=== PATIENT | female | born 1990 | race Two or more races ===

== ENCOUNTER 2016-08-10 22:11 | Emergency (ER) | payer MEDICAID ==
[~2016-08-10] VITALS: Ht 157.5 cm; Wt 43.1 kg
[2016-08-10] MEDS ORDERED: methylPREDNISolone SOD SUCC 125 MG/2 ML VL ONE (22:23)
[2016-08-10] MEDS ORDERED: diphenhdrAMINE HCL 50 MG/1 ML VL ONE (22:23)
[2016-08-10] MEDS ORDERED: SODIUM CHLORIDE 0.9% 1,000 ML IV ONE (22:30)
[2016-08-10] MEDS ORDERED: ONDANSETRON HCL 4 MG/2 ML VIAL ONE (22:32)
[2016-08-10] MEDS ORDERED: methylPREDNISolone SOD SUCC 125 MG/2 ML VL IV ONE (23:00)
[2016-08-10] MEDS ORDERED: ONDANSETRON HCL 4 MG/2 ML VIAL IV ONE (23:00)
[2016-08-10] MEDS ORDERED: diphenhdrAMINE HCL 50 MG/1 ML VL IV ONE (23:00)
[2016-08-11] MEDS ORDERED: ACETAMINOPHEN 325 MG TAB PO ONE (01:15)
[2016-08-11 01:31] LABS: Basophils # (auto) 0 uL; Basophils % (auto) 0.3 % (0.0-2.0); Eosinophils # (auto) 0.2 uL; Eosinophils % (auto) 1.7 % (0.0-7.0); Hematocrit 39.8 % (36.0-46.0); Hemoglobin 13.1 g/dL (12.2-16.2); Lymphocytes # (auto) 5.4 uL; Lymphocytes % (auto) 49.4 % (10.0-50.0); Mean Corpuscular Hemoglobin 30.2 pg (28.0-32.0); Mean Corpuscular Hgb Conc. 32.9 g/dL (32.0-36.0); Mean Corpuscular Volume 91.8 fL (80.0-100.0); Mean Platelet Volume 7.9 fL (7.4-10.4); Monocytes # (auto) 0.8 uL; Monocytes % (auto) 6.9 % (0.0-12.0); Neutrophils # (auto) 4.6 uL; Neutrophils % (auto) 41.7 % (37.0-80.0); Platelet Count (auto) 441 10^3/uL (140-450); Red Cell Distribution Width 16.2 % (11.6-16.0)
[2016-08-11 01:41] LABS: Anion Gap 13 (5-15); Aspartate Aminotransferase 13 U/L (15-37); BUN/Creatinine Ratio 15.9; Blood Urea Nitrogen 11 mg/dL (7-18); Calcium 8.5 mg/dL (8.5-10.1); Carbon Dioxide 19 mmol/L (21-32); Chloride 106 mmol/L (98-107); GFR African American 133 mL/min; GFR Non-African American 110 mL/min; Glucose 118 mg/dL (74-106); Potassium 3.4 mmol/L (3.5-5.1); Sodium 138 mmol/L (136-145)
[2016-08-11 01:46] LABS: Alkaline Phosphatase 54 U/L (45-117); Bilirubin, Total 0.2 mg/dL (0.2-1.0); INR 1.11 (0.9-1.15); Partial Thromboplastin Time 24.6 sec (22.64-33.71); Prothrombin Time 11.4 sec (9.37-12.3); Total Protein 8.2 g/dL (6.4-8.2)
[2016-08-11 02:04] LABS: B-Type Natriuretic Peptide 10.5 pg/mL (0-100); Temperature: 21.6 C (20.0-25.0)
[2016-08-11] MEDS ORDERED: KETOROLAC TROMETH 30 MG/ML 1ML VIAL IV ONE (04:00)
[2016-08-11] MEDS ORDERED: diphenhdrAMINE HCL 25 MG CAP PO ONE (04:45)
[2016-08-11 05:05] VITALS: BP 108/72
== END 2016-08-11 05:10 | disposition home or self-care (01) ==
LOC: ER 22:13
DX: M79.89 Other specified soft tissue disorders (principal); T39.1X5A Adverse effect of 4-Aminophenol derivatives, initial encounter; T40.2X5A Adverse effect of other opioids, initial encounter; R07.89 Other chest pain; J45.909 Unspecified asthma, uncomplicated; F17.210 Nicotine dependence, cigarettes, uncomplicated; Y92.89 Other specified places as the place of occurrence of the external cause
CPT/HCPCS: 36415; 71010; 80053; 83880; 84484; 84702; 85025; 85610; 85730; 96361; 96374; 96375; 99285; J1200; J1885; J2405; J2930; J7030

== ENCOUNTER 2016-11-03 20:54 | Emergency (ER) | payer MEDICAID ==
[~2016-11-03] VITALS: Ht 157.5 cm; Wt 45.1 kg
[2016-11-03 21:09] VITALS: BP 122/90
== END 2016-11-03 22:53 | disposition left against medical advice (07) ==
LOC: ER 20:54
DX: R11.2 Nausea with vomiting, unspecified (principal); Z53.21 Procedure and treatment not carried out due to patient leaving prior to being seen by health care provider

== ENCOUNTER 2017-04-28 12:22 | Emergency (ER) | payer MEDICAID ==
[~2017-04-28] VITALS: Ht 157.5 cm; Wt 43.1 kg
[2017-04-28 13:13] VITALS: BP 133/93
[2017-04-28 15:27] LABS: Basophils # (auto) 0 uL; Basophils % (auto) 0.4 % (0.0-2.0); Eosinophils # (auto) 0.1 uL; Eosinophils % (auto) 1.2 % (0.0-7.0); Hematocrit 38.3 % (36.0-46.0); Lymphocytes # (auto) 2.5 uL; Lymphocytes % (auto) 23.9 % (10.0-50.0); Mean Corpuscular Hgb Conc. 33.8 g/dL (32.0-36.0); Mean Corpuscular Volume 94.5 fL (80.0-100.0); Mean Platelet Volume 6.2 fL (6.9-10.8); Monocytes # (auto) 0.9 uL; Monocytes % (auto) 8.5 % (0.0-12.0); Platelet Count (auto) 428 10^3/uL (140-450); Red Cell Distribution Width 12.5 % (11.8-14.3); White Blood Cell 10.6 10^3/uL (4.4-10.8)
[2017-04-28 15:44] LABS: Albumin 3.9 g/dL (3.4-5.0); BUN/Creatinine Ratio 15.5; Bilirubin, Total 0.3 mg/dL (0.2-1.0); Calcium 8.8 mg/dL (8.5-10.1); Total Protein 8.7 g/dL (6.4-8.2)
== END 2017-04-28 16:11 | disposition home or self-care (01) ==
LOC: ER 12:22
DX: S30.1XXA Contusion of abdominal wall, initial encounter (principal); K64.8 Other hemorrhoids; J45.909 Unspecified asthma, uncomplicated; F17.210 Nicotine dependence, cigarettes, uncomplicated; V49.69XA Unspecified car occupant injured in collision with other motor vehicles in traffic accident, initial encounter; Y93.89 Activity, other specified; Y99.8 Other external cause status; Y92.410 Unspecified street and highway as the place of occurrence of the external cause
CPT/HCPCS: 36415; 74176; 80053; 83690; 85025

== ENCOUNTER 2019-03-24 12:16 | Emergency (ER) | payer MEDICAID ==
[~2019-03-24] VITALS: Ht 167.6 cm; Wt 47.6 kg
[2019-03-24] MEDS ORDERED: LABETALOL HCL 5 MG/ML ML 20ML VIAL IV ONE (12:30)
[2019-03-24] MEDS ORDERED: ONDANSETRON HCL 4 MG/2 ML VIAL IV ONE (12:30)
[2019-03-24 13:06] VITALS: BP 161/95
[2019-03-24 13:43] LABS: Urine Bacteria MANY /hpf (None Seen); Urine Blood Negative /uL (Negative); Urine Mucus MODERATE (None Seen); Urine Specific Gravity 1.018 (1.001-1.035); Urine WBC 31 /hpf (0 - 5)
[2019-03-24] MEDS ORDERED: ASPirin 81 mg TAB PO ONE (13:45)
[2019-03-24 14:03] LABS: Basophils # (auto) 0 uL; Basophils % (auto) 0.2 % (0.0-2.0); Eosinophils # (auto) 0.2 uL; Eosinophils % (auto) 2.4 % (0.0-7.0); Hematocrit 42.5 % (36.0-46.0); Hemoglobin 14.4 g/dL (12.2-16.2); Lymphocytes # (auto) 2.7 uL; Lymphocytes % (auto) 30.3 % (10.0-50.0); Mean Corpuscular Hemoglobin 30.4 pg (28.0-32.0); Mean Corpuscular Hgb Conc. 33.9 g/dL (32.0-36.0); Mean Corpuscular Volume 89.9 fL (80.0-100.0); Monocytes # (auto) 0.5 uL; Monocytes % (auto) 6.1 % (0.0-12.0); Neutrophils # (auto) 5.4 uL; Nucleated Red Blood Cells % 0.1 %; Platelet Count (auto) 358 10^3/uL (140-450); Red Blood Cells 4.73 10^6/uL (4.0-5.20); Red Cell Distribution Width 12.6 % (11.8-14.3); White Blood Cell 8.8 10^3/uL (4.4-10.8)
[2019-03-24 14:04] LABS: Alcohol, Urine < 3.0 mg/dL (0-5); Amphetamine Screen, Urine POSITIVE (NEGATIVE); Barbiturate Scree,Urine NEGATIVE (NEGATIVE); Benzodiazephine Screen, Urine NEGATIVE (NEGATIVE); Cannabinoid Screen, Urine POSITIVE (NEGATIVE); Cocaine Screen, Urine POSITIVE (NEGATIVE); Opiate Scree,Urine NEGATIVE (NEGATIVE); Phencyclidine Screen, Urine NEGATIVE (NEGATIVE)
[2019-03-24 14:15] LABS: Blood Alcohol < 3.0 mg/dL (0-5)
[2019-03-24 14:20] LABS: Alanine Aminotransferase 17 U/L (13-56); Albumin 3.6 g/dL (3.4-5.0); Anion Gap 7 (5-15); Aspartate Aminotransferase 13 U/L (15-37); BUN/Creatinine Ratio 8.6; Blood Urea Nitrogen 6 mg/dL (7-18); Calcium 8.3 mg/dL (8.5-10.1); Carbon Dioxide 26 mmol/L (21-32); Chloride 107 mmol/L (98-107); GFR African American 129 mL/min; GFR Non-African American 107 mL/min; Glucose 96 mg/dL (74-106); Potassium 3.1 mmol/L (3.5-5.1); Sodium 140 mmol/L (136-145)
[2019-03-24 14:29] LABS: Alkaline Phosphatase 85 U/L (45-117); Bilirubin, Total 0.2 mg/dL (0.2-1.0); Total Protein 7.8 g/dL (6.4-8.2)
[2019-03-24] MEDS ORDERED: POTASSIUM CHL 20 Meq TABLET PO ONE (15:00)
== END 2019-03-24 15:15 | disposition left against medical advice (07) ==
LOC: EDBD 12:16 → EDUNIT# 12:16 → EDBD 12:26 → ER 12:26
DX: F41.9 Anxiety disorder, unspecified (principal); E87.6 Hypokalemia; N39.0 Urinary tract infection, site not specified; F14.10 Cocaine abuse, uncomplicated; R07.89 Other chest pain
CPT/HCPCS: 36415; 71045; 80053; 80307; 80320; 81001; 83735; 84484; 84702; 85025; 94761; 96374; 96375; 99284; J2405

== ENCOUNTER → 2019-11-08 | Emergency (ER) | payer SELFPAY ==
[~2019-11-08] VITALS: Ht 157.5 cm; Wt 47.6 kg
[~2019-11-08] MED LIST: KETOROLAC TROMETH 30 MG/ML 1ML VIAL IV ONE; SODIUM CHLORIDE 0.9% 1,000 ML IVB ONE
[2019-11-08 15:19] LABS: Basophils # (auto) 0 10 ^3/uL (0-0.2); Eosinophils # (auto) 0.1 10 ^3/uL (0-0.8); Hemoglobin 13.4 g/dL (12.2-16.2)
[2019-11-08 15:21] LABS: Basophils % (auto) 0.5 % (0.0-2.0); Eosinophils % (auto) 0.7 % (0.0-7.0); Hematocrit 40.1 % (36.0-46.0); Lymphocytes # (auto) 1.3 10 ^3/uL (0.4-5.4); Lymphocytes % (auto) 13.3 % (10.0-50.0); Mean Corpuscular Hemoglobin 28.5 pg (28.0-32.0); Mean Corpuscular Hgb Conc. 33.5 g/dL (32.0-36.0); Mean Corpuscular Volume 85.1 fL (80.0-100.0); Monocytes # (auto) 0.5 10 ^3/uL (0-1.3); Monocytes % (auto) 5.6 % (0.0-12.0); Neutrophils # (auto) 7.5 10 ^3/uL (1.6-8.6); Neutrophils % (auto) 79.9 % (37.0-80.0); Nucleated Red Blood Cells % 0.1 %; Platelet Count (auto) 481 10^3/uL (140-450); Red Blood Cells 4.71 10^6/uL (4.0-5.20); Red Cell Distribution Width 14.6 % (11.8-14.3); White Blood Cell 9.4 10^3/uL (4.4-10.8)
[2019-11-08 15:35] LABS: Urine Bacteria MOD /hpf (None Seen); Urine Blood 3+ /uL (Negative); Urine Mucus FEW (None Seen); Urine Specific Gravity 1.017 (1.001-1.035); Urine WBC 209 /hpf (0 - 5); Urine WBC Clumps PRESENT /hpf (None Seen)
[2019-11-08 15:36] LABS: Albumin 3.5 g/dL (3.4-5.0); BUN/Creatinine Ratio 17.3; Calcium 8.7 mg/dL (8.5-10.1); Potassium 4.3 mmol/L (3.5-5.1)
[2019-11-08 15:45] LABS: Bilirubin, Total 0.4 mg/dL (0.2-1.0)
[2019-11-08 18:34] VITALS: BP 117/70
== END | disposition home or self-care (01) ==
LOC: EDUNIT# 13:57 → ER 14:00 → EDBD 14:00
DX: N20.1 Calculus of ureter (principal); N39.0 Urinary tract infection, site not specified; M54.9 Dorsalgia, unspecified; F41.9 Anxiety disorder, unspecified; F32.9 Major depressive disorder, single episode, unspecified; F17.210 Nicotine dependence, cigarettes, uncomplicated; F12.10 Cannabis abuse, uncomplicated; F14.90 Cocaine use, unspecified, uncomplicated; Z90.49 Acquired absence of other specified parts of digestive tract
CPT/HCPCS: 36415; 74176; 80053; 81001; 84702; 85025; 96374; 99284; J1885; J7030

== ENCOUNTER 2020-03-16 17:17 | Emergency (ER) | payer SELFPAY ==
[~2020-03-16] VITALS: Ht 152.4 cm; Wt 40.4 kg
[2020-03-16 18:47] VITALS: BP 146/100
== END 2020-03-16 19:42 | disposition home or self-care (01) ==
LOC: ER 17:17
DX: B86 Scabies (principal); R21 Rash and other nonspecific skin eruption

== ENCOUNTER 2020-08-30 19:31 | Emergency (ER) | payer SELFPAY ==
[~2020-08-30] VITALS: Ht 157.5 cm; Wt 44.5 kg
[2020-08-30 19:31] VITALS: BP 129/76
== END 2020-08-30 23:33 | disposition left against medical advice (07) ==
LOC: ER 19:31
DX: R21 Rash and other nonspecific skin eruption (principal); Z53.21 Procedure and treatment not carried out due to patient leaving prior to being seen by health care provider

== ENCOUNTER 2020-09-04 22:52 | Emergency (ER) | payer MEDICAID, OTHER ==
[~2020-09-04] VITALS: Ht 157.5 cm; Wt 44.5 kg
[2020-09-04 23:59] LABS: Urine Bacteria MANY /hpf (None Seen); Urine Blood Negative /uL (Negative); Urine Mucus FEW (None Seen); Urine Specific Gravity 1.023 (1.001-1.035); Urine WBC 10 /hpf (0 - 5)
[2020-09-05] MEDS ORDERED: HYDROcodone-ACET 5/325MG TAB PO ONE (00:30)
[2020-09-05 02:05] VITALS: BP 130/90
== END 2020-09-05 02:14 | disposition home or self-care (01) ==
LOC: ER 22:52
DX: S02.2XXA Fracture of nasal bones, initial encounter for closed fracture (principal); R51.9 Headache, unspecified; F41.9 Anxiety disorder, unspecified; F32.9 Major depressive disorder, single episode, unspecified; F17.210 Nicotine dependence, cigarettes, uncomplicated; R94.31 Abnormal electrocardiogram [ECG] [EKG]; Z87.440 Personal history of urinary (tract) infections; Z90.89 Acquired absence of other organs; Y04.8XXA Assault by other bodily force, initial encounter; Y93.89 Activity, other specified; Y92.89 Other specified places as the place of occurrence of the external cause; Y99.8 Other external cause status
CPT/HCPCS: 70450; 71250; 72125; 81001; 81025; 93005

== ENCOUNTER 2022-06-14 18:16 | Emergency (ER) | payer MEDICAID, OTHER ==
[~2022-06-14] VITALS: Ht 157.5 cm; Wt 49.1 kg
[2022-06-14] MEDS ORDERED: TETANUS-DIPTH-ACEL PERTUSSIS 0.5ML SYR Tdap IM ONE (22:45)
[2022-06-14 23:53] VITALS: BP 113/75
== END 2022-06-14 23:53 | disposition home or self-care (01) ==
LOC: ER 18:18
DX: S61.301A Unspecified open wound of left index finger with damage to nail, initial encounter (principal); F17.210 Nicotine dependence, cigarettes, uncomplicated; W26.0XXA Contact with knife, initial encounter; Y93.89 Activity, other specified; Y92.89 Other specified places as the place of occurrence of the external cause; Y99.8 Other external cause status
CPT/HCPCS: 73140; 90471; 90715